=== PATIENT | female | born 1945 | race Caucasian/White ===

== ENCOUNTER 2020-05-12 09:30 | Day surgery (SDC) | payer MEDICARE, OTHER ==
[~2020-05-12 09:30] MED LIST: Lactated Ringers 1,000 ML IV SCH
[2020-05-12] MEDS ORDERED: Propofol 200 MG/20 ML SDV ONE (10:16)
[2020-05-12 12:04] VITALS: BP 118/52; PULSE 70
--- NOTE | 2020-05-12 13:40 | OR ---
PREOPERATIVE DIAGNOSIS: Screening colonoscopy. POSTOPERATIVE DIAGNOSIS: Screening colonoscopy. PROCEDURE PERFORMED: Colonoscopy with polypectomy at 50 and 10 cm. COMPLICATIONS: None. SPECIMENS: 2 polyps. ESTIMATED BLOOD LOSS: 5 mL. ANESTHESIA: Local. PROCEDURE IN DETAIL: This was done in the procedure room. She was placed in left lateral position. First, a rectal exam was done and was normal. Scope was introduced into the rectum and slowly advanced to the rectum, sigmoid, descending, transverse, and ascending colon until the cecum was reached. Upon reaching the cecum, scope was slowly withdrawn looking at all mucosal surfaces on the way out. Small polyps were noted at 50 and 10 cm. She also had moderate sigmoid diverticulosis. FINAL DIAGNOSES: Sigmoid diverticulosis. Polyp at 50 and polyp at 10 cm. BKD: 05/12/2020 11:59:41 MODL: 05/12/2020 12:35:24 /[id number]
== END 2020-05-12 12:45 | disposition home or self-care (01) ==
LOC: VM.SDS 09:30
PROVIDERS: ATTEND Surgery
DX: Z12.11 Encounter for screening for malignant neoplasm of colon (principal); D12.6 Benign neoplasm of colon, unspecified; K57.30 Diverticulosis of large intestine without perforation or abscess without bleeding; E55.9 Vitamin D deficiency, unspecified; E78.5 Hyperlipidemia, unspecified; K21.9 Gastro-esophageal reflux disease without esophagitis; F17.210 Nicotine dependence, cigarettes, uncomplicated; Z01.812 Encounter for preprocedural laboratory examination; Z20.822 Contact with and (suspected) exposure to COVID-19; Z98.890 Other specified postprocedural states
CPT/HCPCS: 00811; 88305; J2704; J7120; U0002